=== PATIENT | female | born 1965 | race Caucasian/White ===

== ENCOUNTER 2016-11-28 05:20 | Emergency (ER) | payer SELFPAY ==
[~2016-11-28] VITALS: Ht 167.6 cm; Wt 68.2 kg
[~2016-11-28 05:20] MED LIST: MEDR4PAK3 PO; Z.0.NO CURRENT MEDS
[2016-11-28 05:27] VITALS: BP 120/78; PULSE 84; RESP 16; TEMP 98.2; O2SAT 98
[2016-11-28 05:54] LABS: BLOOD, URINE LARGE (NEG); GLUCOSE,URINE NEG (NEG); KETONE, URINE NEG (NEG); NITRITE,URINE NEG (NEG)
[2016-11-28 06:00] LABS: URINE COLOR AMBER (YELLW/STRAW)
[2016-11-28 06:01] LABS: BACTERIA, URINE FEW /hpf; COMMENT (UR) CULTURE INDICATED; CULTURE IF INDICATED CULTURE INDICATED; RBC, URINE INNUM /hpf (0-3); WBC, URINE INNUM /hpf (0-5)
[2016-11-28] MEDS ORDERED: PHENAZOPYRIDINE HCL 100 MG TAB PO ONE (06:30)
[2016-11-28] MEDS ORDERED: CIPROFLOXACIN 500 MG TAB PO ONE (06:30)
[2016-11-28 06:45] VITALS: BP 120/59; PULSE 75; RESP 18; O2SAT 98
[2016-11-28] MEDS ORDERED: PHEN0.4T PO (07:34)
[2016-11-28] MEDS ORDERED: CIPR-9 PO (07:34)
--- NOTE | 2016-11-28 07:37 | PD ---
HPI Chief Complaint: Complaint Time Seen by Provider: 06:21 Travel History International Travel<30 days: No Contact w/Intl Traveler<30days: No Traveled to known affect area: No History of Present Illness HPI 51-year-old female presents to the emergency department for 2 weeks of urinary frequency urgency and dysuria with intermittent hematuria. No vaginal bleeding or vaginal discharge. No flank pain. No fever or chills. No generalized abdominal pain. Nausea without vomiting. Patient denies any respiratory illness symptoms no chest pain or shortness of breath. No cough. History of recurrent urinary tract infections. LMP: one week ago --denies has vasectomy. PFSH Past Medical History Narrative Medical Appendectomy, oophorectomy, tobacco use alcohol use; nursing notes reviewed Medical History: Denies Significant Hx Influenza Vaccination: No ?: Not Past Surgical History Appendectomy: Yes (1982) Gynecologic Surgery: Yes (Appendectomy) Social History Alcohol Use: Yes (WINE DAILY) Tobacco Use: Yes (08/31) Substance Use: No Allergies-Medications (Allergen,Severity, Reaction): Coded Allergies: Sulfa (Verified Allergy, Mild, 11/28/16) Reported Meds & Prescriptions Reported Meds & Active Scripts Active Pyridium (Phenazopyridine HCl) 100 Mg Tab 100 Mg PO Q8H PRN Cipro (Ciprofloxacin HCl) 500 Mg Tab 500 Mg PO BID 10 Days Review of Systems Except as stated in HPI: all other systems reviewed are Neg General / Constitutional: No: Fever, Chills HENT: No: Congestion Cardiovascular: No: Chest Pain or Discomfort Respiratory: No: Shortness of Breath Gastrointestinal: No: Vomiting, Abdominal Pain Genitourinary: Positive: Urgency, Frequency, Dysuria, Hematuria, No: Flank Pain, Discharge, Vaginal Bleeding Musculoskeletal: No: Myalgias, Limited ROM Skin: No Rash Psychiatric: No: Anxiety Hematologic/Lymphatic: No: Lymph Node Enlargement Physical Exam Narrative GENERAL: Well-developed well-nourished female in no acute distress no respiratory distress SKIN: Warm and dry. HEAD: Normocephalic. EYES: No scleral icterus. No injection or drainage. NECK: Supple, trachea midline. No JVD or lymphadenopathy. CARDIOVASCULAR: Regular rate and rhythm without murmurs, gallops, or rubs. RESPIRATORY: Breath sounds equal bilaterally. No accessory muscle use. GASTROINTESTINAL: Abdomen soft, non-tender, nondistended. No guarding no rebound. MUSCULOSKELETAL: No cyanosis, or edema. BACK: Nontender without obvious deformity. No CVA tenderness. Data Data Last Documented VS Vital Signs Date Time Temp Pulse Resp B/P Pulse Ox O2 Delivery O2 Flow Rate FiO2 11/28/16 06:45 75 18 120/59 98 Room Air 11/28/16 05:27 98.2 Orders Urinalysis - C+S If Indicated (11/28/16 05:26) Urine Culture (11/28/16 05:45) Ciprofloxacin (Cipro) (11/28/16 06:30) Phenazopyridine (Pyridium) (11/28/16 06:30) Labs Laboratory Tests Test 11/28/16 05:45 Urine Color TYRONE Urine Turbidity CLOUDY Urine pH 6.0 Urine Specific [place] 1.020 Urine Protein 100 mg/dL Urine Glucose (UA) NEG mg/dL Urine Ketones NEG mg/dL Urine Occult Blood LARGE Urine Nitrite NEG Urine Bilirubin NEG Urine Leukocyte Esterase LARGE Urine RBC INNUM /hpf Urine WBC INNUM /hpf Urine Squamous Epithelial 6-8 /hpf Cells Urine Bacteria FEW /hpf Microscopic Urinalysis Comment CULTURE INDICATED MDM Medical Decision Making Medical Screen Exam Complete: Yes Emergency Medical Condition: Yes Medical Record Reviewed: Yes Interpretation(s) Urinalysis: White blood cells red blood cells bacteria leukocyte Estrace; culture indicated Differential Diagnosis UTI, pyelonephritis, kidney stone, ovarian cysts, ovarian torsion Narrative Course Patient with urinary frequency urgency and dysuria with intermittent hematuria with normal range vital signs urine specimen collected and sent for resulting. Patient identified to have abnormal urinalysis and given first dose of oral antibiotic along with Pyridium Patient is stable for outpatient management and follow-up with her primary care provider Diagnosis Primary Impression: UTI (urinary tract infection) Referrals: Primary Care Physician Patient Instructions: General Instructions Additional Instructions: Increase fluid hydration Complete course of antibiotic as prescribed Take as needed acetaminophen or ibuprofen per package directions as needed for fever 100.4F or greater Follow-up with primary care provider; call office to schedule appointment Return to the emergency department for any concerns or change in condition Med/Other Pt SpecificInfo: Prescription(s) given Scripts Phenazopyridine (Pyridium)100 Mg [id number] Mg PO Q8H PRN (DYSURIA) #6 TAB Ref 0 Prov:Erna Brooks MD 11/28/16 Ciprofloxacin (Cipro)500 Mg [id number] Mg PO BID 10 Days Ref 0 Prov:Erna Brooks MD 11/28/16 Disposition: 01 DISCHARGE HOME Condition: Stable Erna Brooks MD Nov 28, 2016 07:37
== END 2016-11-28 07:56 | disposition home or self-care (01) ==
LOC: PHED 05:20
DX: N39.0 Urinary tract infection, site not specified (principal); F17.200 Nicotine dependence, unspecified, uncomplicated
CPT/HCPCS: 81001; 87086; 99283